=== PATIENT | female | born 1995 | race Caucasian/White ===

== ENCOUNTER → 2020-01-14 | Outpatient (CLI) | payer BC ==
[~2020-01-14] MED LIST: ALEVE 220MG220 MG PO; BEYAZ1 TAB PO; BIRTH CONTROL PO; CEPHALEXIN500 M1; IBU-2200 MG PO; LIDODERM PATCH TP; NORCO 325 MG-51 TAB PO
== END ==
LOC: ZCOL.LAB 15:27
DX: Z20.828 Contact with and (suspected) exposure to other viral communicable diseases (principal)

== ENCOUNTER 2022-07-27 23:42 | Inpatient (IN) | payer BC ==
[~2022-07-27] VITALS: Ht 172.7 cm; Wt 85.5 kg
[~2022-07-27 23:42] MED LIST changes: +AMOXICILLIN 8751 TAB PO
--- NOTE | 2022-07-27 23:50 | NUR ---
235- PT PRESENTS TO LDR COMPLAINING OF LEAKING FLUID SINCE 2099. AMBULATORY TO ROOM LR2, CHANGED INTO GOWN. 2355- EFM X2 APPLIED. PT REPORTS LEAKING CLEAR FLUID SINCE 2099. ALSO STATES SHE HAS HAD SOME PINK SPOTTING. STATES SHE IS FEELING BABY MOVE. ALSO STATES HER CONTRACTIONS STARTED AFTER HER WATER BROKE AND THEY ARE CURRENTLY ABOUT 7 MINUTES APART. 0005- AMNITRACE POSITIVE, CLEAR FLUID POOLING. SVE BY THIS NURSE . PLAN OF CARE FOR ADMISSION TUE TO RUPTURE OF MEMBRANES DISCUSSED. QUESTIONS ANSWERED.
[2022-07-28] VITALS (27 sets, daily range): BP systolic 99–172; BP diastolic 55–97; PULSE 61–129; TEMP 97.7–99
--- NOTE | 2022-07-28 00:18 | NUR ---
0018- DR PARK CALLED CHARTED. ORDERS FOR ADMISSION AND PITOCIN. 0030- NURSE TO BEDSIDE. DICUSSED PLAN OF CARE WITH PT CONCERNING ADMISSION. PT AGREES TO INT SITE, BUT DOES NOT WANT ANY FLUIDS OR PITOCIN STARTED AT THIS TIME. RISKS AND BENEFITS DISCUSSED AND QUESTIONS ANSWERED. NURSING ADMISSION HISTORY AND ASSESSMENT COMPLETE AT THIS TIME. 0045- PT SITTING UP ON EDGE OF BED FOR COMFORT. 0115- IV START TO LEFT FOREARM CHARTED. BLOOD DRAWN FOR LAB. NO IV FLUIDS INFUSING PER PT REQUEST.
[2022-07-28] MEDS ORDERED: QUALITY CHOICE1 TA7 (00:39)
--- NOTE | 2022-07-28 01:40 | NUR ---
0140- PT APPEARS VERY UNCOMFORTABLE. SHE IS STANDING AT EDGE OF BED, SWAYING. BIRTHING BALL OFFERED AND PT WISHES TO TRY THIS. PT PROVIDED BALL AND ASSISTED TO SITTING ON IT. PT BOYFRIEND AT BEDSIDE AND PROVIDES BACK RUB DURING CONTRACTIONS. PT DENIES FURTHER NEEDS AT THIS TIME. 0200- DIFFICULT TO TRACE DUE TO MATERNAL MOVEMENT. PT IS NOW STANDING AT EDGE OF BED AGAIN. VOICES SHE NEEDS TO USE BATHROOM. 0205- FHT VERIFIED AND THEN PT OFF MONITOR TO USE BATHROOM. NURSE ASSISTS PT IN PROVIDED URINE SPECIMEN FOR DRUG SCREENING. PT WISHES TO SIT ON TOILET FOR A WHILE. 0215- NURSE BACK TO BEDSIDE. PT IS STANDING AT EDGE OF BED. STATES SHE IS VERY UNCOMFORTABLE AND WOULD LIKE TO BE CHECKED. PT ASSISTED BACK TO BED AND MONITORS ADJUSTED. 0217- SVE BY THIS NURSE . CERVIX IS MUCH THINNER BUT STILL POSTERIOR. PT AND BOYFRIEND UPDATED ON PROGRESS. QUESTIONS ANSWERED. PT STILL DOES NOT WANT PITOCIN OR EPIDURAL AT THIS TIME. 0245- DIFFICULT TO TRACE DUE TO MATERNAL POSITION AND MOVEMENT. PT IS IN KNEE CHEST ON BED. NURSE ADJUSTS AND HOLDS MONITOR IN PLACE TO OBTAIN EFM TRACING. PT IS BREATHING THROUGH CONTRACTIONS AND VOCALIZING. SHE STATES THE CONTRACTIONS ARE KILLING HER. NURSE OFFERS POSITION CHANGE OR EPIDURAL FOR PAIN RELIEF. PT'S BOYFRIEND STATES THEY ARE GOING TO KEEP WORKING ON THINGS WITHOUT.
[2022-07-28 02:22] LABS: BASO # 0.1 K/mm3 (0.0-0.2); BASO % 0.3 % (0.0-2.0); EOS # 0.1 K/mm3 (0.0-0.7); EOS % 0.5 % (0.0-4.0); GRAN # 15.8 K/mm3 (1.4-6.5); GRAN % 82.1 % (42.2-75.2); HEMATOCRIT 38.4 % (37.0-47.0); HEMOGLOBIN 13.4 g/dl (12.5-16.0); LYMPH # 2.3 K/mm3 (1.2-3.4); LYMPH % 12.1 % (20.0-51.0); MEAN CELL VOLUME 87 fl (80.0-100.0); MEAN CORPUSCULAR HEMOGLOBIN 30 pg (27-31); MEAN CORPUSCULAR HGB CONC 35 g/dl (33.0-37.0); MEAN PLATELET VOLUME 11.4 fl (7.4-10.4); MONO # 0.9 K/mm3 (0.1-0.6); MONO % 4.6 % (1.7-9.3); PLATELET COUNT 215 K/mm3 (130-400); RED BLOOD COUNT 4.43 M/mm3 (4.10-5.30); REDCELL DISTRIBUTION WIDTH-CV 12.6 % (11.5-14.5)
[2022-07-28 02:34] LABS: TRICYCLIC ANTIDEPRESS URINE NEGATIVE
--- NOTE | 2022-07-28 03:15 | NUR ---
0315- NURSE AT BEDSIDE. PT CONTINUES TO BREATHE THROUGH CONTRACTIONS. SHE VOCALIZES "I THINK I AM DYING." NURSE OFFERS HELP TO CHANGE POSITION. 0320- PT POSITIONED IN KNEE CHEST, MONITOR HELD ON TO GET FHT. 0330- DISCUSSED WITH PT AND BOYFRIEND STARTING SOME IV FLUIDS DUE TO DECREASE IN VARIABILITY IN FHT BASELINE. PT IS AGREEABLE WITH THIS AT THIS TIME. IV FLUIDS STARTED. 0340- PT REPORTS FEELING PRESSURE. BACK TO BED, SVE BY THIS NURSE 4-/-2. FHT VARIABILITY INCREASING. 0345- PT REQUESTS TO POSITION IN KNEE CHEST AND IS ASSISTED TO DO SO, MONITORS ADJUSTED. 0415- PT REPORTS FEELING LIKE SHE NEEDS TO HAVE A BOWEL MOVEMENT. SHE WOULD LIKE TO GET UP TO BATHROOM. DISCUSSED NEEDING TO PERFORM CERVICAL EXAM BEFORE SHE GETS UP DUE TO HER PRESSURE SENSATION. SVE BY THIS NURSE /0. PT OFF MONITORS TO GO TO BATHROOM.
--- NOTE | 2022-07-28 04:20 | NUR ---
0420- PT UP TO BATHROOM, NURSE STEPS INTO BATHROOM WITH PT AND HER BOYFRIEND. NURSE DISCUSSES WITH THEM POSITIVE URINE DRUG SCREEN AND THAT WOULD MEAN THAT THE DR WOULD NOT WANT THE PT TO BREASTFEED UNTIL A NEGATIVE DRUG SCREEN WAS OBTAINED. EXPLAINED THAT THE MJ WOULD CROSS OVER IN THE BREASTMILK AND EXPOSE THE BABY. PT IS TEARFUL AND STATES IT IS IMPORTANT TO HER TO BREASTFEED. BOYFRIEND CUSSES AND SAYS "NO WAY." EXPLAINED A PUMP WOULD BE PROVIDED. FOB WANTS TO KNOW HOW THE BABY WILL EAT AND NURSE EXPLAINS THAT FORMULA WOULD BE USED. "I DON'T WANT MY BABY TAKING ANY FORMULA." PT IS STILL TEARFUL. FOR ASKS WHAT WOULD BE DONE IF THEY BREASTFEED ANYWAY AND NURSE REPLIES SHE DOESN'T KNOW. FOB STATES "THEY BETTER NOT TRY TO TAKE MY FUCKING BABY AWAY." EXPLAINED NO ONE WAS TRYING TO TAKE BABY AWAY. NURSE STEPS OUT AT THIS TIME. 0426- PT BACK TO BED, EFM X2 APPLIED. PT IS STILL TEARFUL. 0500- FOB SEEKS OUT NURSE TO ASK MORE QUESTIONS ABOUT DRUG TESTING AND . STATES HE IS TRYING TO "AVOID A SITUATION." EXPLAINED NO ONE WANTED A SITUATION AND THAT LONG HE TALKS WITH US IN A RESPECTFUL MANNER, WE COULD AVOID A SITUATION. CRISTINA STATES HE INSISTS ON SPEAKING WITH DR HUERTA WHEN NURSERY CALLS HIM. EXPLAINED THIS WOULD BE PASSED ON TO THE NURSERY NURSE AND WE WOULD DO OUR BEST TO ADDRESS THE SITUATION.
--- NOTE | 2022-07-28 05:05 | NUR ---
0505-SILVINO Kendrick RN, NURSERY NURSE, NOTIFIED OF POSITIVE URINE DRUG SCREEN ON PT AND BOYFRIEND'S DESIRE TO TALK WITH BABY'S DOCTOR ABOUT IN THIS SITUATION SOON POSSIBLE.
--- NOTE | 2022-07-28 05:12 | NUR ---
0512- PT REPORTS INCREASED PRESSURE. SVE BY THIS NURSE -100/0. MONITORS ADJUSTED. ENCOURAGED PT TO KEEP BREATHING THROUGH CONTRACTIONS. BOYFRIEND IS AT BEDSIDE. HE IS INSISTENT THE PT HAS NOT SMOKED MARIJUANA IN 4 MONTHS BUT HAS BEEN USING SOME OTHER FORM OF "DELTA SOMETHING" FOR HER ANXIETY. NURSE EXPLAINED IT IS HOSPITAL POLICY AND THERE WAS NO WAY TO DETERMINE BETWEEN THE 2. FOB STATES HE IS JUST TRYING TO "AVOID A SITUATION." TOLD HIM NONE OF US WANTS A "SITUATION" AND LONG HE CONTINUES TO SPEAK WITH US RESPTECTFULLY THERE WOULDN'T BE A SITUATION. FOB STATES, "YEAH BUT AT SOME POINT IN TIME WE ARE DONE TALKING." 0535- PT HAS CONTINUED TO SIT ON EDGE OF BED BREATHING THROUGH HER CONTRACTIONS WITH SUPPORT FROM HER BOYFRIEND. SHE STATES SHE FEELS LIKE PUSHING. SVE BY THIS NURSE 100/0. EXPLAINED TO PT THAT SHE NEEDS TO CONTINUE TO BREATHE THROUGH CONTRACTIONS UNTIL SHE IS COMPLETELY DILATED. 0545- PT REQUESTS TO BE CHECKED AGAIN. SVE BY THIS NURSE UNCHANGED. 0605- PT IS SITTING ON EDGE OF BED SPONTANEOUSLY PUSHING. SVE BY THIS NURSE -/+1. ENCOURAGED PT TO CONTINUE BREATHING THROUGH CONTRACTIONS. BOYFRIEND AT BEDSIDE FOR PT SUPPORT. 0609- DR PARK CALLED CHARTED, HE IS ON HIS WAY.
--- NOTE | 2022-07-28 06:49 | NUR ---
0635- DR. PARK AT BEDSIDE. PT TRANSFERRED INTO BED AND BEGAN PUSHING NEEDED. SPONTANEOUS VAGINAL DELIVERY AT 0649 OF A VIABLE MALE . PLACED ON MOTHER'S ABDOMEN AND CARE OF INFANT TRANSFERED TO NURSERY RN. CORD CLAMPING WAS DELAYED FOR 3 MINS AND FATHER CUT THE CORD. SPONTANEOUS VAGNIAL DELIVERY OF PLACENTA AT 0656. 1ST DEGREE PERINEAL TEAR AND BILATERAL LABIAL TEAR REPAIRED PER DR. PARK. FUNDUS IS FIRM AND LOCHIA SCANT AT THIS TIME. PITOCIN INFUSING. PAD PLACED AND MOTHER MOVED INTO A COMFORTABLE POSTION. WILL CONTINUE WITH PLAN OF CARE.
[2022-07-28] MEDS ORDERED: MOTRIN 800800 MG/TAB PO (07:35)
--- NOTE | 2022-07-28 08:45 | NUR ---
PT AMBULATED TO RESTROOM WITHOUT DIFFICULTLY. NO COMPLAINTS OF LIGHTHEADEDNESS. PT WAS UNABLE TO VOID AT THIS TIME. PT CLEANED, GIVEN NEW PAD AND UNDERWEAR, AND DRESSED IN GOWN. PT AMBULATED TO ROOM (216). MOTHER OF PT TRANSFERRED BELONGINGS AND REMAINS WITH PT. PT ORIENTED TO PP ROOM AND PLAN OF CARE REVIEWED.
[2022-07-29 00:30] VITALS: BP 104/59; PULSE 99; TEMP 98.3
[2022-07-29 03:25] VITALS: BP 107/62; PULSE 85; TEMP 97.9
--- NOTE | 2022-07-29 09:13 | NUR ---
Initial visit; Parents thanked for offering congratulations and God's blessings for the of their son. Ruffler thanked family for choosing [facility] to which they replied that they have had a very good experience here at our [facility]
[2022-07-29 09:15] VITALS: BP 113/72; PULSE 112; TEMP 98
--- NOTE | 2022-07-29 13:11 | NUR ---
ball worker met with patient to complete assessment. Patient states she has all needed equipment for her baby. Worker provided mental health resources as well as local resources. Patient states that she does not feel that she has a substance abuse issue when asked about marijuana usage. Worker filed a CPS report as patient tested positive for marijuana and collaborated with nursing regarding the above information. 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 CPS report #[id number].
--- NOTE | 2022-07-29 16:00 | NUR ---
Discharge instructions and follow up care reviewed with pt and at the bedside. Both verbalized an understanding, agreed with the plan and states no questions or concerns at this time.
--- NOTE | 2022-08-04 07:45 | NUR ---
Patient's 's cord blood was negative for illegal drugs in system.
== END 2022-07-29 16:00 | disposition home or self-care (01) | DRG 806 ==
LOC: LDR 23:42 → LDRO 23:42 → LDR 07-28 00:23 → OB 07-28 00:23
PROVIDERS: Obstetrics & Gynecology; ADMIT Obstetrics & Gynecology
PROC: 10E0XZZ Delivery of Products of Conception, External Approach (ICD-10-PCS; principal; 2022-07-28)
PROC: 0HQ9XZZ Repair Perineum Skin, External Approach (ICD-10-PCS; 2022-07-28)
PROC: 0UQMXZZ Repair Vulva, External Approach (ICD-10-PCS; 2022-07-28)
DX: O48.0 Post-term pregnancy (principal); O99.324 Drug use complicating childbirth; Z37.0 Single live birth; Z3A.40 40 weeks gestation of pregnancy; O99.344 Other mental disorders complicating childbirth; F41.9 Anxiety disorder, unspecified; F32.A Depression, unspecified; G89.29 Other chronic pain; M54.9 Dorsalgia, unspecified; O70.0 First degree perineal laceration during delivery; O99.892 Other specified diseases and conditions complicating childbirth; F12.90 Cannabis use, unspecified, uncomplicated
CPT/HCPCS: OP; J2590; J7120

== ENCOUNTER → 2023-09-28 | Outpatient (CLI) | payer MEDICAID ==
[~2023-09-28] MED LIST changes: +MOTRIN 800800 MG/TAB PO; +QUALITY CHOICE1 TA7
== END ==
LOC: COL.RAD 06:56
DX: R80.9 Proteinuria, unspecified (principal); R31.9 Hematuria, unspecified